=== PATIENT | female | born 1935 | race Caucasian/White ===

== ENCOUNTER 2022-09-23 16:46 | Inpatient (IN) | payer MEDICARE, OTHER ==
[~2022-09-23] VITALS: Ht 152.4 cm; Wt 43.1 kg
--- NOTE | 2022-09-23 16:46 | NUR ---
BIB [facility] FROM [facility], STAFF NOTED HER TO BE WEAK, LETHARGIC AND LESS RESPONSIVE SINCE 1200. PLACED IN BED, AWAKE NOT RESPONDING TO VERBAL STIMULI- NON VERBAL, BREATHING EVEN AND UNLABORED SATURATING AT 97%RA.
--- NOTE | 2022-09-23 16:59 | NUR ---
ESTABLISHED IV 18G RIGHT FOREARM, BLOOD COLLECTED INCLUDING CULTURES, SENT TO LAB FOR PICKUP.
--- NOTE | 2022-09-23 17:10 | NUR ---
URINE COLLECTED AND SENT TO LAB
--- NOTE | 2022-09-23 17:10 | NUR ---
MOVE SHEET SUBMITTED.
[2022-09-23 17:24] LABS: BASOPHILS % (AUTO) 0.1 % (0.0-2.0); HEMATOCRIT 45 % (33-45); HEMOGLOBIN 14.2 g/dL (11.5-14.8); LYMPHOCYTES # (AUTO) 1.3 K/uL (0.8-4.8); LYMPHOCYTES % (AUTO) 7.2 % (20.0-44.0); MEAN CORPUSCULAR HGB CONC 31 g/dl (31.0-36.0); MEAN CORPUSCULAR VOLUME 87 fL (82-100); MONOCYTES # (AUTO) 0.9 K/uL (0.1-1.30); NEUTROPHILS # (AUTO) 15.2 K/uL (1.8-8.9); NEUTROPHILS % (AUTO) 87.7 % (43.0-81.0); PLATELET COUNT (AUTO) 322 K/uL (150-450); RED BLOOD CELL COUNT(AUTO) 5.21 MIL/uL (4.0-5.2); WHITE BLOOD COUNT (AUTO) 17.4 K/uL (4.3-11.0)
[2022-09-23] MEDS ORDERED: IV NS 0.9% 1,000 ML IV ONE (17:30)
[2022-09-23] MEDS ORDERED: Magnesium 1GM/D5W 100ML PREMIX 200 ML IV ONE (17:30)
[2022-09-23] MEDS: Magnesium 1GM/D5W 100ML PREMIX 100 ML IV SCH ×2 (17:38→19:00)
[2022-09-23 17:42] LABS: BILIRUBIN,URINE 1+ (NEGATIVE); COLOR,URINE YELLOW (YELLOW); LEUKOCYTE ESTERASE ,URINE NEGATIVE (NEGATIVE); NITRITE, URINE NEGATIVE (NEGATIVE); PH,URINE 5.5 (5.0-8.0); PROTEIN,URINE 1+ mg/dl (NEGATIVE); UGLUCOSE NEGATIVE (NEGATIVE)
[2022-09-23 17:46] LABS: CALCIUM, SERUM 9.6 mg/dL (8.5-10.1); CARBON DIOXIDE 24 mmol/L (21-32); CHLORIDE 121 mmol/L (98-107); CREATININE 1.7 mg/dL (0.6-1.3); GLUCOSE 141 mg/dL (74-106); POTASSIUM 3.6 mmol/L (3.5-5.1); UREA NITROGEN, BLOOD 66 mg/dL (7-18)
[2022-09-23] MEDS ORDERED: SENN-261 PO (17:49)
[2022-09-23] MEDS ORDERED: DIPH-1062 PO (17:49)
[2022-09-23] MEDS ORDERED: ESCI10TA PO (17:49)
[2022-09-23] MEDS ORDERED: ACET-637 PO (17:49)
[2022-09-23] MEDS ORDERED: OMEP40CA21 PO (17:49)
[2022-09-23] MEDS ORDERED: HYDR25TA4 PO (17:49)
[2022-09-23] MEDS ORDERED: ASPI-1420 PO (17:49)
[2022-09-23] MEDS ORDERED: LOSA50TA39 PO (17:49)
[2022-09-23] MEDS ORDERED: METF-440 PO (17:49)
[2022-09-23] MEDS ORDERED: SOLI5TAB7 PO (17:49)
[2022-09-23 17:51] LABS: SODIUM SERUM 157 mmol/L (136-145)
--- NOTE | 2022-09-23 17:51 | NUR ---
TAKEN TO CT VIA [facility].
[2022-09-23 18:02] LABS: ALANINE AMINOTRANSFERASE 102 U/L (12-78); ALKALINE PHOSPHATASE 63 U/L (46-116); ASPARTATE AMINOTRANSFERASE 82 U/L (15-37); BILIRUBIN,DIRECT 0.2 mg/dL (0.0-0.2); BILIRUBIN,TOTAL 0.6 mg/dL (0.2-1.0); TOTAL PROTEIN, SERUM 6.7 g/dL (6.4-8.2)
--- NOTE | 2022-09-23 18:05 | NUR ---
NA-157, TROP-168, LAC ACID-5.75; DR KEE MADE AWARE
[2022-09-23 18:17] LABS: RBC,URINE 21-50 /HPF (0-2)
[2022-09-23 18:18] LABS: BACTERIA,URINE RARE /HPF (None Seen); MUCUS,URINE Moderate /LPF (None Seen); WBC,URINE 0-2 /HPF (0-3)
[2022-09-23] MEDS ORDERED: VANCOMYCIN HCL 1.25 GM in IV D5W 260 ML IV ONE (18:30)
[2022-09-23] MEDS ORDERED: PIPERACILLIN /TAZOBACTAM 3.375 G in IV D5W 50 ML IV ONE (18:30)
[2022-09-23] MEDS ORDERED: VANCOMYCIN 1 GM in IV D5W 250ml IV ONE (18:30)
[2022-09-23] MEDS ORDERED: VANCOMYCIN HCL 1 GM in IV D5W 260 ML IV ONE (18:30)
[2022-09-23] MEDS ORDERED: MAG HYDROX/AL HYDROX/SIMETH 30 ML UDC PO PRN (20:00)
[2022-09-23] MEDS ORDERED: DEXTROSE 50%-WATER 50 ML DISP.SYRIN IV PRN (20:00)
[2022-09-23] MEDS ORDERED: ACETAMINOPHEN 325 MG TABLET PO PRN (20:00)
[2022-09-23] MEDS ORDERED: SOLIFENACIN 5 MG PO SCH (20:00)
[2022-09-23] MEDS ORDERED: MAGNESIUM HYDROXIDE 30 ML UDC PO PRN (20:00)
[2022-09-23] MEDS ORDERED: Z GUARD REMEDY 4 OZ OINT TP PRN (20:00)
[2022-09-23] MEDS ORDERED: IV D5/0.45 NACL 1,000 ML IV PRN (20:00)
[2022-09-23] MEDS ORDERED: SENNOSIDES 8.6 MG TABLET PO PRN (20:00)
[2022-09-23] MEDS ORDERED: ONDANSETRON HCL/PF 4 MG/2 ML VIAL IVP PRN (20:00)
[2022-09-23] MEDS ORDERED: LORAZEPAM INJ 2 MG/ML VIAL IV PRN (20:00)
--- NOTE | 2022-09-23 20:38 | NUR ---
PT GOING TO 103.
--- NOTE | 2022-09-23 21:08 | NUR ---
REPORT GIVEN TO CARLOS A RN ROOM 103 FOR FRANCISCO JAVIER
--- NOTE | 2022-09-23 21:49 | NUR ---
LACTIC REFLEX 4.7, MD AWARE
--- NOTE | 2022-09-23 22:00 | NUR ---
DESIGN PRINTER BALLOON NOTES RECEIVED PATIENT FROM ER BY KARON. PATIENT IS A/O TIMES 1. PATIENT OPENS HER EYES WHEN CALLING HER NAME. [place] SPEAKER. NO PAIN NOTED . NO SOB NOTED. NO DISTRESS NOTED. IV SITE ON THE RFA g18 AND LFA G 20 INTACT. CURRENTLY RUNNING D5 1/2 NS AT 100 ML/HR. ON TELE MONITOR READING SR WITH PAC'S. NO DISTRESS NOTED. ON ROOM AIR AND TOLERATING WELL. AFEBRILE. OVERALL SKIN CHECKS DONE. UMBILICAL HERNIA NOTED. RIGHT INNER TOE REDNESS AND LEFT LOWER LEG SCAB NOTED. ALL THE BELONGINGS CHECKED. PATIENT UNABLE TO SIGN. ALL NEEDS ATTENDED. HOB ELEVATED FOR ASPIRATION PRECAUTION. ALL SAFETY MEASURES IN PLACE. BED LOCKED IN THE LOWEST POSITION. CALL LIGHT AND TABLE IN EASY REACH. SIDE RAILS TIMES 2 UP. WILL CONTINUE TO MONITOR CLOSELY.
--- NOTE | 2022-09-23 22:00 | NUR ---
mental telepathist notes
[2022-09-23] MEDS: ENOXAPARIN SODIUM 30 MG/0.3 ML DISP.SYRIN SQ SCH (22:24)
--- NOTE | 2022-09-23 22:30 | NUR ---
RN NOTES BLOOD SUGAR CHECKED FOR 0. NOTED THE RESULT OF 149. HELD INSULIN, SINCE PATIENT IS NOT EATING YET.
[2022-09-23] MEDS: BLOOD SUGAR DIAGNOSTIC 1 EACH STRIP IN SCH (22:43)
[2022-09-23 23:19] VITALS: BP 105/66
[2022-09-24] MEDS: PIPERACILLIN /TAZOBACTAM 2.25 G in IV D5W 50 ML IV SCH ×3 (01:24→17:41)
[2022-09-24 05:50] LABS: BASOPHILS % (AUTO) 0.1 % (0.0-2.0); HEMATOCRIT 37 % (33-45); HEMOGLOBIN 11.6 g/dL (11.5-14.8); LYMPHOCYTES # (AUTO) 1.3 K/uL (0.8-4.8); LYMPHOCYTES % (AUTO) 8.7 % (20.0-44.0); MEAN CORPUSCULAR HGB CONC 32 g/dl (31.0-36.0); MEAN CORPUSCULAR VOLUME 87 fL (82-100); MONOCYTES # (AUTO) 0.6 K/uL (0.1-1.30); MONOCYTES % (AUTO) 4.2 % (2.0-12.0); NEUTROPHILS # (AUTO) 13.1 K/uL (1.8-8.9); PLATELET COUNT (AUTO) 255 K/uL (150-450); RED BLOOD CELL COUNT(AUTO) 4.27 MIL/uL (4.0-5.2)
[2022-09-24 06:05] LABS: CALCIUM, SERUM 8.5 mg/dL (8.5-10.1); CREATININE 1.2 mg/dL (0.6-1.3); MAGNESIUM 2.9 mg/dL (1.8-2.4); PHOSPHORUS 2.5 mg/dL (2.5-4.9)
[2022-09-24 06:09] LABS: POTASSIUM 2.6 mmol/L (3.5-5.1)
--- NOTE | 2022-09-24 06:16 | NUR ---
RN NOTES TIFF FROM LAB CALLED AT 0615 AND GAVE CRITICAL LAB RESULT OF POTASSIUM 2.6 AND SODIUM 157. INFORMED LAMBERTO PARSONS , AWAITING FOR RESPONSE.
[2022-09-24] MEDS: BLOOD SUGAR DIAGNOSTIC 1 EACH STRIP IN SCH ×4 (06:27→22:11)
[2022-09-24] MEDS: INSULIN REGULAR, HUMAN 100 UNIT/ML 3 ML VIAL SQ PRN ×3 (06:28→22:13)
[2022-09-24] MEDS ORDERED: IV D5W 1,000 ML IV PRN (06:30)
[2022-09-24] MEDS: POTASSIUM CL. PREMIX PERIPHER. 50 ML IV SCH ×6 (06:56→11:56)
--- NOTE | 2022-09-24 07:04 | NUR ---
CHURCH WARDEN CLOSING NOTES PATIENT AWAKE IN BED. PATIENT IS A/O TIMES 1. PATIENT OPENS HER EYES WHEN CALLING HER NAME. FARO[place] SPEAKER. NO PAIN NOTED . NO SOB NOTED. NO DISTRESS NOTED. IV SITE ON THE RFA g18 AND LFA G 20 INTACT. CURRENTLY RUNNING D5 W AT 75 ML/HR. ON TELE MONITOR READING SR WITH PAC'S. NO DISTRESS NOTED. ON ROOM AIR AND TOLERATING WELL. AFEBRILE. ALL NEEDS ATTENDED. HOB ELEVATED FOR ASPIRATION PRECAUTION. ALL DUE MEDS GIVEN ORDERED.ALL SAFETY MEASURES IN PLACE. BED LOCKED IN THE LOWEST POSITION. CALL LIGHT AND TABLE IN EASY REACH. SIDE RAILS TIMES 2 UP. WILL ENDORSE FOR FRANCISCO JAVIER.
[2022-09-24 07:07] LABS: THYROID STIMULATING HORMONE 0.815 uIU/mL (0.358-3.74)
--- NOTE | 2022-09-24 07:10 | NUR ---
WIRE CHIEF OPENING NOTES RECEIVED PATIENT IN BED, ASLEEP BUT EASILY AROUSES TO VOICE AND TACTILE STIMULI. PATIENT IS ALERT, AND OPENS HERE EYES WHEN NAME IS CALLED. NO RESPIRATORY DISTRESS NOTED. NO SOB, BREATHING EVEN AND UNLABORED. ON RA WITH OXYGEN SATURATION OF 97%. ON ST WITH HR OF 107 PER TELE MONITOR. HAS IV ACCESS ON RIGHT FOREARM RUNNING WITH D5 W AT 75 ML.HR, IV SITE PATENT, NO S/S INFILTRATION NOTED. ALSO HAS SALINE LOCK ON LEFT FOREARM, SITE PATENT, INTACT, FLUSHES WELL AND NO S/S INFILTRATION NOTED. PATIENT IS AFEBRILE AND NO S/S PAIN OR DISCOMFORT AT THIS TIME. ALL SAFETY MEASURES IN PLACE BED LOCKED AND IN LOWEST POSITION WITH BED ALARM ON. CALL LIGHT WITHIN REACH. SIDE RAILS UP TIMES 2. WILL CONTINUE TO MONITOR PATIENT THROUGHOUT SHIFT.
[2022-09-24 08:00] VITALS: BP 123/72
[2022-09-24] MEDS: PANTOPRAZOLE 40 MG VIAL IV SCH (08:25)
[2022-09-24] MEDS: ESCITALOPRAM OXALATE (10 MG) 10 MG TABLET PO SCH (08:26)
[2022-09-24] MEDS: ASPIRIN 81 MG TAB.CHEW PO SCH (08:26)
[2022-09-24] MEDS ORDERED: IV NS 0.9% 1,000 ML IV PRN (08:30)
[2022-09-24] MEDS ORDERED: ASPIRIN EC 81 MG TABLET.DR PO SCH (09:00)
--- NOTE | 2022-09-24 09:20 | NUR ---
DR. ROWE CAME BY AND MADE ROUNDS AND ORDEED TO CHANGED PATIENT'S IV FLUID TO D5 1/2 NS WITH THE SAME RATE. DOCTOR WAS ALSO MADE AWARE THAT THE NURSE TRIED TO FEED THE PATIENT FOR BREAKFAST AND THE PATIENT HAS BEEN POCKETING FOOD AND MAY BE AT RISK FOR ASPIRATION WITH AN ORDER FOR SWALLOWING EVALUATION. ALL ORDERS NOTED AND CARRIED OUT.
[2022-09-24 09:21] LABS: THYROID STIMULATING HORMONE 0.831 uIU/mL (0.358-3.74)
[2022-09-24] MEDS: IV D5/0.45 NACL 1,000 ML IV PRN (09:24)
[2022-09-24 12:00] VITALS: BP 115/66
[2022-09-24 16:00] VITALS: BP 122/70
--- NOTE | 2022-09-24 17:28 | NUR ---
SPOKE WITH LOGAN AT THE PHARMACY AND VERIFIED THE PATIENT'S ORDER FOR VANCO AND WAS INFORMED THAT PER DOCTOR'S ORDER, VANCO 500 MG SHOULD BE GIVEN AND THE PATIENT WILL START 750 MG TOMORROW. ORDER CARRIED OUT.
[2022-09-24] MEDS ORDERED: VANCOMYCIN 500 MG in IV D5W 100 ML IV SCH (18:00)
[2022-09-24] MEDS ORDERED: VANCOMYCIN HCL 0.75 GM in IV D5W 250 ML IV SCH (18:00)
--- NOTE | 2022-09-24 18:45 | NUR ---
TELE CLOSING NOTES: PATIENT IN BED AWAKE, RESPONDS HEN CALLED BY NAME. NO RESPIRATORY DISTRESS NOTED THROUGHOUT SHIFT,OXYGEN SATURATION 98%. ON ST WITH HR OF 101 ON TELE MONITOR. IV ACCESS ON RIGHT FOREARM INTACT WITH D5 1/2 NS RUNNING @ 75 ML/HR, IV SITE PATENT, NO S/S INFILTRATION NOTED. ALSO HAS SALINE LOCK ON LEFT FOREARM, INTACT, PATENT AND NO S/S INFILTRATION NOTED. ALL NEEDS MET AND ANTICIPATED. PATIENT REMAINS AFEBRILE THROUGHOUT SHIFT. ALL SAFETY MEASURES IMPLEMENTED. WILL ENDORSE TO NEXT SHIFT NURSE FOR CONTINUITY OF CARE.
--- NOTE | 2022-09-24 19:46 | NUR ---
noc rn opening note received patient in bed with eyes closed. easy to arouse. no s/s of apparent distress on room air. denies pain at this time. reading sr in the tele monitor with 91 bpm. r.fa #18g running D5 1/2 ns @75mls/hr and l.fa #20g on saline lock. safety in place. will continue with the plan of care for patient.
[2022-09-24 20:00] VITALS: BP 122/70
[2022-09-24] MEDS: ENOXAPARIN SODIUM 30 MG/0.3 ML DISP.SYRIN SQ SCH (21:13)
[2022-09-25] VITALS: BP 144/74
[2022-09-25] MEDS: IV D5/0.45 NACL 1,000 ML IV PRN ×2 (01:23→15:10)
[2022-09-25] MEDS: PIPERACILLIN /TAZOBACTAM 2.25 G in IV D5W 50 ML IV SCH ×3 (02:17→17:02)
[2022-09-25 04:00] VITALS: BP 131/68
--- NOTE | 2022-09-25 05:03 | NUR ---
noc rn note tap water enema done at this time. moderate amount of feces out with about 4 fecal impactions. will monitor.
[2022-09-25 06:14] LABS: BASOPHILS % (AUTO) 0.1 % (0.0-2.0); EOSINOPHILS % (AUTO) 0.1 % (0.0-6.0); HEMATOCRIT 35 % (33-45); HEMOGLOBIN 11.3 g/dL (11.5-14.8); LYMPHOCYTES # (AUTO) 1.1 K/uL (0.8-4.8); LYMPHOCYTES % (AUTO) 9.6 % (20.0-44.0); MEAN CORPUSCULAR HGB CONC 33 g/dl (31.0-36.0); MEAN CORPUSCULAR VOLUME 87 fL (82-100); MONOCYTES # (AUTO) 0.4 K/uL (0.1-1.30); MONOCYTES % (AUTO) 3.8 % (2.0-12.0); NEUTROPHILS # (AUTO) 9.5 K/uL (1.8-8.9); NEUTROPHILS % (AUTO) 86.4 % (43.0-81.0); PLATELET COUNT (AUTO) 221 K/uL (150-450); RED BLOOD CELL COUNT(AUTO) 3.99 MIL/uL (4.0-5.2)
[2022-09-25] MEDS: BLOOD SUGAR DIAGNOSTIC 1 EACH STRIP IN SCH ×4 (06:27→22:15)
[2022-09-25] MEDS: INSULIN REGULAR, HUMAN 100 UNIT/ML 3 ML VIAL SQ PRN ×4 (06:29→22:16)
--- NOTE | 2022-09-25 06:43 | NUR ---
noc rn note patient in bed, mumbles, eye open. no s/s of apparent distress on room air. no c/o pain at this time. reading sr throughout shift with 80 bpm this am. rt. fa running D51/2 NS @75mls/hr. all needs attended. all scheduled medication administered. safety kept in place the whole shift. will endorse to morning shift RN for continuity of patient care.
[2022-09-25 06:50] LABS: ALBUMIN 2.5 g/dL (3.4-5.0); BILIRUBIN,TOTAL 0.7 mg/dL (0.2-1.0); CALCIUM, SERUM 8.7 mg/dL (8.5-10.1); CREATININE 0.7 mg/dL (0.6-1.3); MAGNESIUM 2.4 mg/dL (1.8-2.4); PHOSPHORUS 1.8 mg/dL (2.5-4.9); POTASSIUM 3.2 mmol/L (3.5-5.1); TOTAL PROTEIN, SERUM 5.7 g/dL (6.4-8.2)
--- NOTE | 2022-09-25 07:30 | NUR ---
RECEIVED PATIENT IN BED, ASLEEP BUT EASILY AROUSES TO VOICE AND TACTILE STIMULI. PATIENT IS ALERT, AND OPENS HERE EYES WHEN NAME IS CALLED. NO RESPIRATORY DISTRESS NOTED. NO SOB, BREATHING EVEN AND UNLABORED. ON RA WITH OXYGEN SATURATION OF 97%. ON ST WITH HR OF 98 PER TELE MONITOR. HAS IV ACCESS ON RIGHT FOREARM RUNNING WITH D5 W AT 75 ML.HR, IV SITE PATENT, NO S/S INFILTRATION NOTED. ALSO HAS SALINE LOCK ON LEFT FOREARM, SITE PATENT, INTACT, FLUSHES WELL AND NO S/S INFILTRATION NOTED. PATIENT IS AFEBRILE AND NO S/S PAIN OR DISCOMFORT AT THIS TIME. ALL SAFETY MEASURES IN PLACE BED LOCKED AND IN LOWEST POSITION WITH BED ALARM ON. CALL LIGHT WITHIN REACH. SIDE RAILS UP TIMES 2. WILL CONTINUE TO MONITOR PATIENT THROUGHOUT SHIFT.
[2022-09-25 08:00] VITALS: BP 141/79
[2022-09-25] MEDS: ESCITALOPRAM OXALATE (10 MG) 10 MG TABLET PO SCH (08:18)
[2022-09-25] MEDS: ASPIRIN 81 MG TAB.CHEW PO SCH (08:18)
[2022-09-25] MEDS: PANTOPRAZOLE 40 MG VIAL IV SCH (08:31)
--- NOTE | 2022-09-25 08:53 | NUR ---
INFORMED DR MORALEZ REGARDING K-3.2 AND TROPONIN- 59 TODAY VIA TEXT
[2022-09-25] MEDS: POTASSIUM CHLORIDE 20 MEQ TAB.PRT.SR PO SCH ×2 (09:27→09:58)
--- NOTE | 2022-09-25 10:41 | NUR ---
CALLED PHARMACY REGARDING 3RD DOSE OF KDUR , 40MEQ KDUR PRIOR, THIS MEDICATION ISNT VERIFIED YET BY PHARMACY.
[2022-09-25] MEDS ORDERED: K PHOS NEUTRAL 250 MG TABLET PO ONE (11:00)
[2022-09-25] MEDS ORDERED: POTASSIUM CHLORIDE 20 MEQ TAB.PRT.SR PO SCH (11:00)
[2022-09-25 12:00] VITALS: BP 146/76
[2022-09-25 16:00] VITALS: BP 133/75
--- NOTE | 2022-09-25 18:33 | NUR ---
PATIENT IS AWAKE, CONFUSE, VITAL SIGNS ARE STABLE.NO SIGNS OF IN DISTRESS, UNLABORED BREATHING, SPO2-98% ROOM AIR, BED IN LOW, CALL LIGHT WITHIN REACH. LFA PERIPHERAL IV RUNNING WITH D51/2 NS AT 75ML/HR, INFUSING WELL.
--- NOTE | 2022-09-25 19:30 | NUR ---
FEATURE WRITER OPENING NOTES - RECEIVED PATIENT AWAKE, BED IN HIGH ALATORRE'S. A/O X1, CONFUSED. ROMANSH SPEAKING. BREATHING EVEN AND NON-LABORED ON ROOM AIR. NOT IN APPARENT DISTRESS. NO C/O PAIN OR DISCOMFORT AT THIS TIME. ON TELE MONITOR READING SINUS RHYTHM WITH PAC AT 87 BPM. HAS THE FF IV ACCESS: LEFT FOREARM #20G AND SALINE LOCKED, RIGHT FOREARM #18G WITH D5 1/2NS RUNNING AT 75 ML/HR. NO S/S OF INFILTRATION NOTED. SAFETY PRECAUTIONS IN PLACE: BED LOCKED AND IN LOW POSITION, SIDE RAILS UP X3, BED ALARM ON, CALL LIGHT WITHIN REACH. WILL CONTINUE PLAN OF CARE.
[2022-09-25 20:00] VITALS: BP 133/75
[2022-09-25] MEDS: ENOXAPARIN SODIUM 30 MG/0.3 ML DISP.SYRIN SQ SCH (20:54)
--- NOTE | 2022-09-25 21:00 | NUR ---
ADMINISTERED PRN SENOKOT 17.2MG FOR BOWEL MANAGEMENT.
--- NOTE | 2022-09-25 22:16 | NUR ---
BS 135. NO INSULIN COVERAGE GIVEN SINCE PATIENT IS NOT EATING WELL. ONLY HAD 3 SPOONS OF VANILLA PUDDING WHEN I GAVE HER MEDS.
--- NOTE | 2022-09-25 22:47 | NUR ---
PER [facility] FACE SHEET, PATIENT HAS NKA.
[2022-09-26] VITALS: BP 143/78
[2022-09-26] MEDS: PIPERACILLIN /TAZOBACTAM 2.25 G in IV D5W 50 ML IV SCH ×2 (01:17→09:12)
[2022-09-26 04:00] VITALS: BP 127/75
[2022-09-26] MEDS: IV D5/0.45 NACL 1,000 ML IV PRN (05:48)
--- NOTE | 2022-09-26 06:28 | NUR ---
FUNERAL DIRECTOR AND EMBALMER CLOSING NOTES - PATIENT SLEEPING IN BED, EASY TO AROUSE. ORIENTED TO NAME ONLY. NO SOB OR NOTED, SATURATING AT 99% IN ROOM AIR. NOT IN CARDIAC OR RESPIRATORY DISTRESS. DENIES PAIN AT THIS TIME. AFEBRILE. ON TELE MONITOR READING SINUS RHYTHM WITH PAC AT 67 BPM. LEFT AND RIGHT FOREARM IV ACCESS INTACT, PATENT AND FLUSHING. ENCOURAGED TO INCREASE FOOD AND WATER INTAKE. ALL DUE MEDS GIVEN AND NEEDS ATTENDED. SAFETY PRECAUTIONS MAINTAINED. WILL ENDORSE TO NEXT SHIFT FOR CONTINUITY OF CARE.
[2022-09-26] MEDS: BLOOD SUGAR DIAGNOSTIC 1 EACH STRIP IN SCH ×4 (06:34→21:14)
[2022-09-26] MEDS: INSULIN REGULAR, HUMAN 100 UNIT/ML 3 ML VIAL SQ PRN ×3 (06:35→21:16)
--- NOTE | 2022-09-26 07:10 | NUR ---
FRUIT PRESERVER OPENING NOTES RECEIVED PATIENT IN BED, AWAKE, ALERT AND LOOKS TOWARDS THE NURSE WHEN NAME IS CALLED. ON RA WITH OXYGEN SATURATION OF 96%. NO SOB NOTED, BREATHING EVEN AND UNLABORED. ON SR PER TELE MONITOR WITH WITH HR OF 67. IV ACCESS ON RIGHT FOREARM IS PATENT AND NO S/S INFILTRATION, RUNNING WITH D5 1/2 NS AT 75 ML.HR. ALSO HAS SALINE LOCK ON LEFT FOREARM, SITE PATENT, INTACT, FLUSHES WELL AND NO S/S INFILTRATION NOTED. PATIENT IS AFEBRILE AND NO S/S PAIN OR DISCOMFORT AT THIS TIME. ALL SAFETY MEASURES IN PLACE BED LOCKED AND IN LOWEST POSITION WITH BED ALARM ON. CALL LIGHT WITHIN REACH. SIDE RAILS UP X 2. WILL CONTINUE TO MONITOR PATIENT THROUGHOUT SHIFT.
[2022-09-26 07:15] LABS: BASOPHILS % (AUTO) 0.3 % (0.0-2.0); EOSINOPHILS % (AUTO) 0.8 % (0.0-6.0); HEMATOCRIT 35 % (33-45); LYMPHOCYTES # (AUTO) 0.9 K/uL (0.8-4.8); MEAN CORPUSCULAR HGB CONC 31 g/dl (31.0-36.0); MEAN CORPUSCULAR VOLUME 90 fL (82-100); MONOCYTES # (AUTO) 0.3 K/uL (0.1-1.30); MONOCYTES % (AUTO) 4.8 % (2.0-12.0); NEUTROPHILS # (AUTO) 5.8 K/uL (1.8-8.9); NEUTROPHILS % (AUTO) 81.1 % (43.0-81.0); PLATELET COUNT (AUTO) 189 K/uL (150-450); RED BLOOD CELL COUNT(AUTO) 3.93 MIL/uL (4.0-5.2); WHITE BLOOD COUNT (AUTO) 7.2 K/uL (4.3-11.0)
[2022-09-26 07:41] LABS: ALBUMIN 2.2 g/dL (3.4-5.0); BILIRUBIN,TOTAL 0.5 mg/dL (0.2-1.0); CALCIUM, SERUM 8.5 mg/dL (8.5-10.1); CREATININE 0.7 mg/dL (0.6-1.3); PHOSPHORUS 2.3 mg/dL (2.5-4.9); POTASSIUM 3.7 mmol/L (3.5-5.1); TOTAL PROTEIN, SERUM 5.2 g/dL (6.4-8.2)
[2022-09-26 08:00] VITALS: BP 151/76
[2022-09-26] MEDS ORDERED: PANTOPRAZOLE 40 MG TABLET.DR PO SCH (09:00)
[2022-09-26] MEDS: PANTOPRAZOLE 40 MG VIAL IV SCH (09:12)
[2022-09-26] MEDS: ASPIRIN 81 MG TAB.CHEW PO SCH (09:12)
[2022-09-26] MEDS: ESCITALOPRAM OXALATE (10 MG) 10 MG TABLET PO SCH (09:12)
[2022-09-26] MEDS: NEUTRA PHOS 1 POWD.PACKET PO SCH ×2 (10:19→17:12)
[2022-09-26 12:00] VITALS: BP 125/76
[2022-09-26] MEDS ORDERED: METRONIDAZOLE 500MG/ NS 100ML 500 MG in PREMIX 1 EA IV SCH ×4 (14:30)
[2022-09-26] MEDS: METRONIDAZOLE 500MG/ NS 100ML 500 MG in PREMIX 1 EA IV SCH ×2 (14:54→21:03)
[2022-09-26 16:00] VITALS: BP 110/66
[2022-09-26] MEDS: GLUCERNA SHAKE 237 ML CAN PO SCH (17:25)
--- NOTE | 2022-09-26 19:19 | NUR ---
MED SURG CLOSING NOTES: PATIENT REMAINS STABLE THE ENTIRE SHIFT. NO RESPIRATORY DISTRESS NOTED AND NO C/O PAIN OR DISCOMFORT NOTED THE WHOLE SHIFT. ALL NEEDS MET AND ANTICIPATED. WILL ENDORSE TO NEXT SHIFT NURSE FOR CONTINUITY OF CARE.
--- NOTE | 2022-09-26 19:30 | NUR ---
MS RN OPENING NOTE RECEIVED PT AWAKE IN BED. A/O X1 AND [place] SPEAKING ONLY. PT STABLE ON ROOM AIR. NO SOB OR S/S OF RESPIRATORY DISTRESS. BREATHING EVEN AND UNLABORED. IV ACCESS RFA 18G AND LFA 20G, INTACT AND PATENT. SAFETY PRECAUTIONS IN PLACE. BED IN LOWEST LOCKED POSITION, HOB ELEVATED, SIDE RAILS UP X3, AND CALL LIGHT AND TABLE WITHIN REACH. ALL NEEDS MET AT THIS TIME.
[2022-09-26 20:00] VITALS: BP 133/95
[2022-09-26] MEDS: ENOXAPARIN SODIUM 30 MG/0.3 ML DISP.SYRIN SQ SCH (21:05)
[2022-09-27] VITALS: BP 120/82
[2022-09-27 04:00] VITALS: BP 149/75
[2022-09-27] MEDS: METRONIDAZOLE 500MG/ NS 100ML 500 MG in PREMIX 1 EA IV SCH ×2 (04:51→12:44)
--- NOTE | 2022-09-27 06:30 | NUR ---
MS RN CLOSING NOTE PT RESTING IN BED, VERBALLY RESPONSIVE. A/O X1 AND SENEGALESE SPEAKING ONLY. PT STABLE ON ROOM AIR. NO SOB OR S/S OF RESPIRATORY DISTRESS. BREATHING EVEN AND UNLABORED. IV ACCESS RFA 18G AND LFA 20G SL, INTACT AND PATENT. ALL DUE MEDS GIVEN ORDERED. TURNED AND REPOSITIONED Q2H. KEPT CLEAN AND DRY. SAFETY PRECAUTIONS IN PLACE AT ALL TIMES. BED IN LOWEST LOCKED POSITION, HOB ELEVATED, SIDE RAILS UP X3, AND CALL LIGHT AND TABLE WITHIN REACH. ALL NEEDS MET AT THIS TIME AND WILL ENDORSE TO ONCOMING NURSE FOR FRANCISCO JAVIER.
[2022-09-27 07:08] LABS: BASOPHILS % (AUTO) 0.4 % (0.0-2.0); EOSINOPHILS % (AUTO) 1.1 % (0.0-6.0); HEMATOCRIT 32 % (33-45); HEMOGLOBIN 10.4 g/dL (11.5-14.8); LYMPHOCYTES % (AUTO) 14.2 % (20.0-44.0); MEAN CORPUSCULAR HGB CONC 33 g/dl (31.0-36.0); MEAN CORPUSCULAR VOLUME 87 fL (82-100); MONOCYTES # (AUTO) 0.5 K/uL (0.1-1.30); MONOCYTES % (AUTO) 6.3 % (2.0-12.0); NEUTROPHILS # (AUTO) 5.6 K/uL (1.8-8.9); PLATELET COUNT (AUTO) 203 K/uL (150-450); WHITE BLOOD COUNT (AUTO) 7.2 K/uL (4.3-11.0)
[2022-09-27 07:41] LABS: CALCIUM, SERUM 8.2 mg/dL (8.5-10.1); CREATININE 0.6 mg/dL (0.6-1.3); POTASSIUM 3.4 mmol/L (3.5-5.1)
--- NOTE | 2022-09-27 07:41 | NUR ---
RN OPENING NOTE RECEIVED PT AWAKE IN BED. A/O X1 AND [place] SPEAKING ONLY. PT STABLE ON ROOM AIR. NO SOB OR S/S OF RESPIRATORY DISTRESS. BREATHING EVEN AND UNLABORED. IV ACCESS RFA 18G AND LFA 20G, INTACT AND PATENT. SAFETY PRECAUTIONS IN PLACE. BED IN LOWEST LOCKED POSITION, HOB ELEVATED, SIDE RAILS UP X3, AND CALL LIGHT AND TABLE WITHIN REACH.
[2022-09-27 08:00] VITALS: BP 140/75
[2022-09-27] MEDS: ASPIRIN 81 MG TAB.CHEW PO SCH (08:07)
[2022-09-27] MEDS: BLOOD SUGAR DIAGNOSTIC 1 EACH STRIP IN SCH ×2 (08:07→12:44)
[2022-09-27] MEDS: PANTOPRAZOLE 40 MG VIAL IV SCH (08:08)
[2022-09-27] MEDS: INSULIN REGULAR, HUMAN 100 UNIT/ML 3 ML VIAL SQ PRN ×2 (08:08→12:45)
[2022-09-27] MEDS: ESCITALOPRAM OXALATE (10 MG) 10 MG TABLET PO SCH (08:08)
[2022-09-27] MEDS: GLUCERNA SHAKE 237 ML CAN PO SCH ×2 (08:12→12:44)
[2022-09-27] MEDS ORDERED: PANTOPRAZOLE 40 MG/PACK PACK PO SCH (09:00)
--- NOTE | 2022-09-27 10:59 | NUR ---
WOUND CARE CONSULT: PT PRESENTS WITH CONTRACTED LOWER EXTREMITIES, SOME DISCOLORATION TO FEET AND FRAGILE SKIN, PRESENT ON ADMISSION. PT IS INCONTINENT. DISCUSSED SKIN PROTECTION WITH NURSING STAFF. MD IN AGREEMENT WITH PLAN OF CARE.
[2022-09-27] MEDS ORDERED: POLYETHYLENE GLYCOL 3350 17 GM POWD.PACK PO PRN (11:00)
[2022-09-27] MEDS ORDERED: POTASSIUM CHLORIDE 20 MEQ POWDER PACKET PO ONE (11:00)
--- NOTE | 2022-09-27 11:20 | NUR ---
RN NOTE TAP WATER ENEMA ADMINISTERED ORDERED PT DID HAVE A LARGE BOWEL MOVEMENT WITH HARD STOOL.
--- NOTE | 2022-09-27 15:29 | NUR ---
RN NOTE PATIENT PICKED UP BY EMT IN STABLE CONDITION, GOING TO [facility] AND CARE DAUGHTER AT BEDSIDE
[2022-09-27 15:30] VITALS: BP 98/10
[2022-09-28] MEDS ORDERED: PANTOPRAZOLE 40 MG/PACK PACK PO SCH (07:30)
== END 2022-09-27 15:34 | DRG 871 ==
LOC: ER 16:48 → TELE1 20:52 → MEDSG1 09-26 13:57
PROVIDERS: ADMIT Nurse Practitioner Acute Care; ATTEND Nurse Practitioner Acute Care
DX: A41.9 Sepsis, unspecified organism (principal); E43 Unspecified severe protein-calorie malnutrition; G93.41 Metabolic encephalopathy; I21.A1 Myocardial infarction type 2; J69.0 Pneumonitis due to inhalation of food and vomit; N17.0 Acute kidney failure with tubular necrosis; E87.0 Hyperosmolality and hypernatremia; E87.20 Acidosis, unspecified; R64 Cachexia; Z68.1 Body mass index [BMI] 19.9 or less, adult; N39.0 Urinary tract infection, site not specified; E11.22 Type 2 diabetes mellitus with diabetic chronic kidney disease; E78.5 Hyperlipidemia, unspecified; E86.0 Dehydration; E87.6 Hypokalemia; E88.09 Other disorders of plasma-protein metabolism, not elsewhere classified; K21.9 Gastro-esophageal reflux disease without esophagitis; K43.9 Ventral hernia without obstruction or gangrene; K56.41 Fecal impaction; N18.9 Chronic kidney disease, unspecified; N20.0 Calculus of kidney; N32.81 Overactive bladder; R62.7 Adult failure to thrive; Z20.822 Contact with and (suspected) exposure to COVID-19; Z79.82 Long term (current) use of aspirin; Z79.84 Long term (current) use of oral hypoglycemic drugs; Z87.440 Personal history of urinary (tract) infections; Z79.899 Other long term (current) drug therapy; I12.9 Hypertensive chronic kidney disease with stage 1 through stage 4 chronic kidney disease, or unspecified chronic kidney disease; R74.01 Elevation of levels of liver transaminase levels; F32.A Depression, unspecified; K42.9 Umbilical hernia without obstruction or gangrene; F03.90 Unspecified dementia, unspecified severity, without behavioral disturbance, psychotic disturbance, mood disturbance, and anxiety
CPT/HCPCS: 36415; 70450-TC; 71045-TC; 74018; 76770-TC; 80048-TC; 80053-TC; 80061-TC; 80076-TC; 80202-TC; 81001; 82962-TC; 83605-TC; 83735-TC; 84100-TC; 84439-TC; 84443-TC; 84484-TC; 85025-TC; 87040-TC; 87081-TC; 87086-TC; 92526; 92611-TC; 93307-TC; 97112-TC; 97530-TC; A4216; C9113; C9803; G0378; J1650; J1815; J2543; J3370; J3475; J3480; J3490; J7030; J7050; J7060